=== PATIENT | male | born 1950 | race Caucasian/White ===

== ENCOUNTER 2018-04-14 07:37 | Inpatient (IN) | payer MEDICARE, SELFPAY ==
[2018-04-14] VITALS (17 sets, daily range): BP systolic 105–148; BP diastolic 59–93; PULSE 110–151; RESP 15–22; TEMP 36.5–37.2; O2SAT 93–100; BMI 30.7
--- NOTE | 2018-04-14 | DI.US.S_ITS ---
PROCEDURE: US ARTERIAL DUPLEX LE LT INDICATIONS: non-healing left lower leg ulcer TECHNIQUE: Color and pulse Doppler interrogation was performed of the left lower extremity arterial system, with image documentation. COMPARISON: None. FINDINGS: Common femoral artery: 155 cm/sec, with monophasic flow. Deep femoral artery: 105 cm/sec, with biphasic flow. Proximal superficial femoral artery: 135 cm/sec, with monophasic flow. Mid superficial femoral artery: 128 cm/sec, with monophasic flow. Distal superficial femoral artery: 170 cm/sec, with monophasic flow. Popliteal artery: 65 cm/sec, with monophasic flow. Posterior tibial artery: 57 cm/sec, with monophasic flow. Anterior tibial artery/dorsalis pedis: 59 cm/sec, with monophasic flow. Felder-scale imaging description: Diffuse atheromatous plaque and calcification is present the left lower extremities. IMPRESSION: 1. Monophasic waveforms within the left common femoral artery suggesting inflow stenosis likely within the iliac artery. If further characterization is warranted, CT aortogram or MR aortogram and bilateral lower extremity runoff is recommended to further characterize findings. Additionally, this would be helpful to evaluate for possible therapeutic intervention. If renal insufficiency limits administration of iodinated contrast, consider CO2 arteriography. Dictated by: Sunitha Pappas M.D. on 04/14/2018 at 15:05 Approved by: Sunitha Pappas M.D. on 04/14/2018 at 15:10
--- NOTE | 2018-04-14 | DI.ECHO.S_ITS ---
[facility]---------+ [facility] +---------+ : : [address] : : : : [id number] : : : : Phone: [phone] Echocardiogram Report + + :Name: GERMAN VALDEZ Study Date: 04/15/2018 Height: 71 in : :[facility] Weight: 200 lb : : Gender: Male BSA: 2.1 m2 : :: 1950 Age: 68 yrs BP: 122/93 mmHg: :Reason For Study: Atrial fibrillation : : Performed By: Lakia Duggan : :Referring: RUSTY RUSH : + + Interpretation Summary The left ventricle is normal in size. There is normal left ventricular wall thickness. The ejection fraction is estimated to be 55-60%. The left atrium is mildly dilated. The aortic valve is not well visualized. There is mild to moderate aortic stenosis. The peak aortic velocity is 2.3 m/sec. There is mild aortic regurgitation. There is mild pulmonary hypertension. The right ventricular systolic pressure is estimated at 39 mmHg assuming a right atrial pressure of 15 mm Hg. The IVC is dilated (diameter is greater than 2.1 cm) and it collapses less than 50% with a sniff. This suggests a high right atrial pressure of 15 mm Hg. No other echocardiographic abnormalities seen. Compared to the prior exam dated February 06, 2015 the left ventricular systolic function appears significantly improved. The degree of aortic stenosis is worsened. There appears to be less significant mitral regurgitation. No other significant changes noted. Procedure: A two-dimensional transthoracic echocardiogram with color flow and Doppler was performed. The study quality was technically adequate. Comparison is made with the echocardiogram of 02-06-15. The patient was in atrial fibrillation with heart rates between 81-94 bpm during the exam. Left Ventricle: The left ventricle is normal in size. There is normal left ventricular wall thickness. The ejection fraction is estimated to be 55-60%. There are no obvious focal wall motion abnormalities noted but poor endocardial definition reduces the sensitivity for the detection of such. Diastolic function could not be accurately assessed due to atrial fibrillation. Right Ventricle: The right ventricle is normal in size and function. Right ventricular systolic function is borderline reduced. Atria: The left atrium is mildly dilated. The right atrium grossly appears normal in size. The interatrial septum is intact with no evidence for an atrial septal defect. Mitral Valve: The mitral valve is grossly normal. There is trace mitral regurgitation. Aortic Valve: The aortic valve is not well visualized. The calculated aortic valve area is 0.9 cm2. The peak aortic velocity is 2.3 m/sec. The peak aortic velocity on the previous exam was 1.3 m/sec. The aortic valve mean gradient is 9 mmHg. Severity ratio is 0.27. There is mild to moderate aortic stenosis. There is mild aortic regurgitation. Tricuspid Valve: The tricuspid valve leaflets are thin and pliable. There is mild tricuspid regurgitation. The right ventricular systolic pressure is estimated at 39 mmHg assuming a right atrial pressure of 15 mm Hg. There is mild pulmonary hypertension. Pulmonic Valve: The pulmonic valve is not well visualized. Great Vessels: The aortic root is normal size. The ascending aorta could not be visualized. The IVC is dilated (diameter is greater than 2.1 cm) and it collapses less than 50% with a sniff. This suggests a high right atrial pressure of 15 mm Hg. Pericardium/ Pleura There is no pericardial effusion. There is no pleural effusion. MMode/2D Measurements & Calculations LVIDd: 4.4 cm LVOT diam: 2.0 cm LVIDs: 2.9 cm Ao root diam: 3.1 cm FS: 33.5 % Aortic Jxn: 2.5 cm IVSd: 0.96 cm Ao Arch Diam (Prox Trans): 2.2 cm LVPWd: 0.93 cm LV chris. diameter/BSA (cm/m^2): 2.1 LV sys. diameter/BSA (cm/m^2): 1.4 LA dimension: 5.0 cm RA long axis: 5.3 cm LA A2 area: 22.6 cm2 RA area: 19.2 cm2 LA A4 area: 22.0 cm2 RA vol: 58.9 ml LA length (vol): 6.0 cm RA : 27.9 ml/m2 LA vol: 70.5 ml IVC diam: 2.5 cm LA vol index: 33.4 ml/m2 RVDd major: 6.4 cm RVD1 (basal): 3.1 cm RVD2 (mid): 2.8 cm Doppler Measurements & Calculations Ao V2 max: 231.5 cm/sec LVOT Max Chandler: 64.4 cm/sec Ao V2 mean: 130.6 cm/sec LV V1 max P.7 mmHg Ao max P.4 mmHg LV V1 VTI: 11.5 cm Ao mean P.2 mmHg FARZANA(I,D): 0.88 cm2 Ao V2 VTI: 42.7 cm FARZANA(V,D): 0.91 cm2 sev ratio: 0.27 FARZANA indexed to BSA (cm^2/m^2): 0.42 MV P1/2t: 68.2 msec TR max chandler: 242.8 cm/sec MVA(VTI): 2.3 cm2 TR max P.6 mmHg MV V2 mean: 63.8 cm/sec MV P1/2t max chandler: 118.4 cm/sec MV mean P.2 mmHg MVA(P1/2t): 3.2 cm2 MV V2 VTI: 16.6 cm Reading Physician:03:46 PM
--- NOTE | 2018-04-14 | DI.US.S_ITS ---
PROCEDURE: US ABDOMEN COMPLETE INDICATIONS: eval for ascites, cirrhosis TECHNIQUE: Real-time scanning was performed of the abdominal and retroperitoneal organs, with image documentation. COMPARISON: [facility], US, ABDOMEN COMPLETE, 02/14/2014, 8:49. FINDINGS: Liver: Liver is normal in size and homogeneous in echotexture. Gallbladder: Gallbladder has been surgically removed since last exam. Biliary ducts: Intrahepatic bile ducts are non-dilated. Extrahepatic bile duct is obscured by bowel gas Pancreas: Pancreas is obscured by bowel gas Spleen: Spleen is normal in size and homogeneous in echotexture. Kidneys: Kidneys are normal in size and echotexture. Right kidney measures 10.3 cm long; left kidney measures 11.2 cm long. No hydronephrosis or nephrolithiasis. No solid masses. Aorta: Visualized aorta is normal in caliber at less than 3 cm. the distal segment is obscured by bowel gas. Iliacs: Iliac vessels are obscured by bowel gas IVC: Intrahepatic inferior vena cava is patent. Miscellaneous: No free abdominal fluid. IMPRESSION: 1. Liver appears normal in size and echotexture. No ascites. 2. Considerable bowel gas, obscuring the pancreas, extrahepatic bile ducts, distal aorta and iliac vessels. 3. Status post cholecystectomy. Dictated by: Eddie Cornejo M.D. on 04/14/2018 at 15:46 Approved by: Eddie Cornejo M.D. on 04/14/2018 at 15:49
--- NOTE | 2018-04-14 07:41 | DI.RAD.S_ITS ---
PROCEDURE: XR CHEST 1V INDICATIONS: shortness of breath TECHNIQUE: One view of the chest was acquired. COMPARISON: [facility], , CHEST 1 VIEW, 02/13/2014, 9:30. FINDINGS: Surgical changes and devices: None. Lungs and pleura: Chronic interstitial changes are present. There mild bilateral effusions, right greater than left, slightly progressive compared to prior exam. Slight increased hazy opacities present within the right hemithorax. Increased pulmonary vascularity is noted. Mediastinum: Mediastinal contours appear normal. Heart size is normal. Bones and chest wall: No suspicious bony lesions. Overlying soft tissues appear unremarkable. IMPRESSION: Chronic interstitial changes as well as appearance of increased pulmonary vascularity suggestive of edema. Mild bilateral effusions, slightly progressive compared to prior exam. Dictated by: Kerrie Arshad M.D. on 04/14/2018 at 9:16 Approved by: Kerrie Arshad M.D. on 04/14/2018 at 9:16
--- NOTE | 2018-04-14 07:42 | ED_ITS ---
HPI - SOB/Dyspnea General Chief Complaint: Shortness of Breath/Dyspnea Stated Complaint: SOB Time Seen by Provider: 04/14/18 07:40 Source: patient and EMS Mode of arrival: EMS Limitations: no limitations History of Present Illness 68-year-old male here for evaluation of shortness of breath and swelling in his lower legs and ?water back up ?patient states over the past 2 weeks he has gained approximately 60 lb. He states that he occasionally has times when his weight increases. He states that he has had shortness of breath which has been worsening over the past 2 weeks. States that he feels like his clothes do not fit any more. He states shortness of breath worsened yesterday. Denies chest pain. Is not on any medications. Has seen a plant pathologist in the past and was told ?it is not my heart ?he does not have a primary care doctor. He has not take any medicines. Has no history of atrial fibrillation. No trauma. States that he ate some ?tartar sauce with lemon juice ?and a ?Slim Damian ?and states after that he has been gaining weight. Related Data Allergies Allergy/AdvReac Type Severity Reaction Status Date / Time NOVACAINE Allergy Intermediate Uncoded 04/14/18 08:19 Review of Systems Constitutional Denies fatigue and Denies fever(s) Comments: Weight gain Eyes Denies blurry vision and Denies diplopia ENT Ears, Nose, Mouth, and Throat: Denies vertigo, Denies dizziness and Denies neck pain Cardiovascular Denies chest pain, Denies diaphoresis, Denies syncope, Denies rapid heart rate, Reports edema, Denies irregular heart rhythm, Reports leg ulcers, Reports leg edema, Denies lightheadedness, Denies palpitations, Reports dyspnea and Reports dyspnea on exertion Respiratory Reports dyspnea, Reports dyspnea on exertion, Denies stridor and Denies wheezing Gastrointestinal Gastrointestinal: Denies abdominal pain, Denies constipation, Denies diarrhea, Denies nausea and Denies vomiting Genitourinary Denies hematuria and Denies dysuria Musculoskeletal Reports myalgias, Reports arthralgias, Denies joint swelling and Denies neck pain Comments: Bilateral lower extremity swelling Integumentary/Breasts Comments: Swelling bilateral lower extremities with a ?infection? on his left lower leg Neurologic Denies vertigo, Denies dizziness and Denies syncope Endocrine Denies fatigue and Denies palpitations Hematologic/Lymphatic Denies easy bleeding and Denies easy bruising Allergic/Immunologic Denies wheezing PFSH Social History Smoking Status: Current every day smoker Exam Initial Vital Signs Initial Vital Signs: Vital Signs Temperature 98.2 F 04/14/18 07:46 Pulse Rate 111 H 04/14/18 07:46 Respiratory Rate 15 04/14/18 07:46 Blood Pressure 123/71 H 04/14/18 07:46 Pulse Oximetry 96 04/14/18 07:46 Const General: cooperative, comfortable, well developed, well groomed, No acute distress and ill appearing Orientation: alert, awake and oriented x3 HENMT Head: normal to inspection, normocephalic and atraumatic Chest Chest: normal inspection of the chest and normal palpation of entire chest wall Resp Other: Left side with crackles Right-sided diminished lung sounds with crackles no wheezing Cardio Rate: tachycardic Rhythm: abnormal rhythm irregularly irregular Pulses: radial pulses present GI Inspection: non-distended Palpation: soft, No firm, No guarding and No tender Skin Other: Patient with bilateral lower extremity chronic venous stasis changes with lichenification Patient with a 10 cm area of ulceration on his left mid tibia anteriorly with purulent material drainage. Neuro General: alert, awake and oriented x3 Extrem Other: Bilateral lower extremity edema with skin changes as noted in the skin section Course Orders Ordered: ED Orders 04/14/18 07:40 B Type Natriuretic Peptide Stat Complete Blood Count AUTO DIFF Stat Comprehensive Metabolic Panel Stat Lipase Stat Partial Thromboplastin Time Stat Prothrombin Time INR Stat Troponin I Stat 04/14/18 07:41 XR chest 1V Stat EKG-12 Lead Stat 04/14/18 08:05 Blood Culture Stat Lactate (Lactic Acid) Stat Discontinued Medications Furosemide (Lasix) 60 mg IV NOW ONE Stop: 04/14/18 07:59 Last Admin: 04/14/18 08:07 Dose: 60 mg Lidocaine HCl (Xylocaine 1%) 20 ml SUBCUT NOW ONE Stop: 04/14/18 08:27 Last Admin: 04/14/18 08:32 Dose: 20 ml Morphine Sulfate (Morphine) 4 mg IV NOW ONE Stop: 04/14/18 08:27 Last Admin: 04/14/18 08:31 Dose: 4 mg Vital Signs - 8 hr 04/14/18 07:46 04/14/18 08:30 04/14/18 09:05 Temperature 98.2 F Pulse Rate 111 H 120 H 116 H Respiratory Rate 15 15 16 Blood Pressure 123/71 H Blood Pressure [Right Arm] 115/74 127/78 H Pulse Oximetry 96 100 100 MDM - SOB/Dyspnea Lab Data Attestation: I reviewed the patient's lab results. Result diagrams: 04/14/18 07:40 04/14/18 07:40 Lab Results 04/14/18 04/14/18 04/14/18 Range/Units 07:40 07:40 07:40 WBC 9.0 (4.5-11.0) X10^3/uL RBC 3.45 L (4.5-5.9) X10^6/uL Hgb 8.5 L (13.5-17.5) g/dL Hct 26.5 L (41-53) % MCV 76.8 L (80-100) fL MCH 24.6 L (26-34) PG MCHC 32.1 (30-36) % RDW 24.1 H (11.6-14.8) % Plt Count 343 (150-400) X10^3/uL Neut % (Auto) 65.5 (50-75) % Lymph % (Auto) 12.6 L (25-40) % Mcintosh % (Auto) 15.7 H (3-14) % Eos % (Auto) 5.0 H (2-4) % Baso % (Auto) 1.2 (0-2) % Neut # (Auto) 5900 (1518-4764) /uL RBC Morphology Not Reportable Polychromasia 1+ H Anisocytosis 3+ H Ovalocytes 1+ H PT 14.6 H (10.1-12.7) SECONDS INR 1.3 (0.9-1.3) APTT 27 (26.4-36.2) SECONDS Sodium 144 (137-145) mmol/L Potassium 3.0 L (3.4-5.1) mmol/L Chloride 96 L (98-107) mmol/L Carbon Dioxide 36 H (22-32) mmol/L BUN 21 H (9-20) mg/dL Creatinine 1.20 (0.66-1.25) mg/dL Estimated GFR > 60.0 (>60) mL/min BUN/Creatinine Ratio 17.5 (6-22) Glucose 106 (80-110) mg/dL Lactate (0.7-2.1) mmol/L Calcium 8.9 (8.4-10.2) mg/dL Total Bilirubin 0.7 (0.2-1.3) mg/dL AST 25 (17-59) IU/L ALT 15 L (21-72) IU/L Alkaline Phosphatase 144 H (38-126) U/L Troponin I < 0.012 (0.01-0.034) ng/mL B-Natriuretic Peptide 125.0 H (<100) Total Protein 7.5 (6.3-8.2) g/dL Albumin 3.8 (3.5-5.0) g/dL Globulin 3.7 (1.7-4.1) g/dL Albumin/Globulin Ratio 1.0 (1.0-2.8) Lipase 79 (23-300) U/L // Range/Units 08:05 WBC (4.5-11.0) X10^3/uL RBC (4.5-5.9) X10^6/uL Hgb (13.5-17.5) g/dL Hct (41-53) % MCV (80-100) fL MCH (26-34) PG MCHC (30-36) % RDW (11.6-14.8) % Plt Count (150-400) X10^3/uL Neut % (Auto) (50-75) % Lymph % (Auto) (25-40) % Mcintosh % (Auto) (3-14) % Eos % (Auto) (2-4) % Baso % (Auto) (0-2) % Neut # (Auto) (1898-7288) /uL RBC Morphology Polychromasia Anisocytosis Ovalocytes PT (10.1-12.7) SECONDS INR (0.9-1.3) APTT (26.4-36.2) SECONDS Sodium (137-145) mmol/L Potassium (3.4-5.1) mmol/L Chloride (98-107) mmol/L Carbon Dioxide (22-32) mmol/L BUN (9-20) mg/dL Creatinine (0.66-1.25) mg/dL Estimated GFR (>60) mL/min BUN/Creatinine Ratio (6-22) Glucose (80-110) mg/dL Lactate 1.4 (0.7-2.1) mmol/L Calcium (8.4-10.2) mg/dL Total Bilirubin (0.2-1.3) mg/dL AST (17-59) IU/L ALT (21-72) IU/L Alkaline Phosphatase (38-126) U/L Troponin I (0.01-0.034) ng/mL B-Natriuretic Peptide (<100) Total Protein (6.3-8.2) g/dL Albumin (3.5-5.0) g/dL Globulin (1.7-4.1) g/dL Albumin/Globulin Ratio (1.0-2.8) Lipase (23-300) U/L Imaging Data Chest x-ray: Attestation: I personally reviewed and interpreted this imaging study as follows: My impression: Right-sided pleural effusion with volume loss No focal consolidation Radiologist's impression: ECG Data Attestation: I personally reviewed and interpreted this ECG as follows: Prior ECG tracings: not available for review Interpretation: Atrial fibrillation Ventricular rate of 104 Left axis deviation Normal QRS Normal QTC No ST T wave changes MDM Narrative Medical decision making narrative: 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 According to his history it seems that he has had off and on edema issues with weight gain for some time now. Has not seen a medical provider and over a year and his last medical appointment was with a plant pathologist. He informed me that he does not take any medications except for Tylenol. He states that he has no history of atrial fibrillation. Does report a weight gain over the past couple weeks. Has chronic venous stasis changes in his bilateral lower extremities. The ulceration in his left lower extremity also appears to be chronic. He has been using hydrogen peroxide at home on top of this. Does not have an elevated white count. Lactate unremarkable. Patient's physical exam and history is not consistent with pneumonia. He states that he has had his heart evaluated in the past and has been told that the edema is ?not from my heart ?has a relatively low BNP this morning. After discussing the chest x-ray with the radiologist who feels that the findings in the right lung are effusion which patient has had in the past. Discussed the case with Discharge Plan Departure Patient Disposition: Admitted As Inpatient Clinical Impression: Pneumothorax on right, Dependent edema, Breath shortness, A-fib, Leg ulcer, left
[2018-04-14 07:53] LABS: Basophils Percent Auto 1.2 % (0-2); Hematocrit 26.5 % (41-53); Hemoglobin 8.5 g/dL (13.5-17.5); Lymphocytes Percent Auto 12.6 % (25-40); Mean Corpuscular HGB Conc 32.1 % (30-36); Mean Corpuscular Hemoglobin 24.6 PG (26-34); Mean Corpuscular Volume 76.8 fL (80-100); Monocytes Percent Auto 15.7 % (3-14); Neutrophils Absolute Auto 5900 /uL (3000-5900); Neutrophils Percent Auto 65.5 % (50-75); Platelet Count 343 X10^3/uL (150-400); Red Blood Cell Count 3.45 X10^6/uL (4.5-5.9); Red Cell Distribution Width 24.1 % (11.6-14.8)
[2018-04-14 07:55] LABS: INR 1.3 (0.9-1.3); Prothrombin Time 14.6 SECONDS (10.1-12.7)
[2018-04-14 07:58] LABS: PTT Partial Thromboplastin Tim 27 SECONDS (26.4-36.2)
[2018-04-14 07:59] LABS: Add Manual Diff / Slide Review SLIDE REVIEW
[2018-04-14 08:00] LABS: Alanine Aminotransferase 15 IU/L (21-72); Albumin 3.8 g/dL (3.5-5.0); Alkaline Phosphatase 144 U/L (38-126); Aspartate Aminotransferase 25 IU/L (17-59); BUN Creatinine Ratio 17.5 (6-22); Bilirubin Total 0.7 mg/dL (0.2-1.3); Blood Urea Nitrogen 21 mg/dL (9-20); Calcium 8.9 mg/dL (8.4-10.2); Carbon Dioxide 36 mmol/L (22-32); Chloride 96 mmol/L (98-107); Estimated Glomerular Filt Rate > 60.0 mL/min (>60); Globulin 3.7 g/dL (1.7-4.1); Glucose 106 mg/dL (80-110); HEMOLYSIS 25 (0-50); Lipase 79 U/L (23-300); Sodium 144 mmol/L (137-145); Total Protein 7.5 g/dL (6.3-8.2)
[2018-04-14] MEDS: FUROSEMIDE 100 MG/10 ML VIAL 60 MG IV (08:07)
[2018-04-14 08:12] LABS: Troponin I < 0.012 ng/mL (0.01-0.034)
[2018-04-14 08:30] LABS: Anisocytosis 3+; Ovalocytes 1+; Polychromasia 1+
[2018-04-14] MEDS: MORPHINE 4 MG/ML INJ IV ×2 (08:31→09:51)
[2018-04-14] MEDS: LIDOCAINE 1% 20 ML INJ SUBCUT (08:32)
[2018-04-14 08:33] LABS: Lactate (Lactic Acid) 1.4 mmol/L (0.7-2.1)
--- NOTE | 2018-04-14 08:40 | PC.NURSE ---
Placed on oxygen per MD. To have chest tube insertion for pneumothorax
--- NOTE | 2018-04-14 09:37 | PC.NURSE ---
States shooting spasm type pain that comes and goes to l leg.
--- NOTE | 2018-04-14 12:30 | P.HP_ITS ---
History of Present Illness Date Patient Seen: 04/14/18 Time Patient Seen: 11:30 Chief complaint: SOB Narrative: Patient is a 68-year-old male who came into the emergency department due to progressive dyspnea and swelling in his legs over the past month. Patient states he has had edema in the legs for years. He sees Dr. Javier ELLISON if he for Cardiology and states Dr. De Los Santos told him the swelling is not due to his heart. Patient states his doctors have not been able to figure out the source of his edema. He states he last saw Dr. De Los Santos if the in April 2017 and gets all his medications refilled through Cardiology. He states he stopped seeing a PCP as he has become somewhat dissolution with doctors in general who have not been able to help him. Review of outside records found on radiology PAX indicates he was admitted to [facility] back in 2014 and had echo done which showed LVEF 40 +/-5%, normal LV size, decreased RV function, mild to moderate MR and noted he was in atrial fibrillation with RVR. Also his chest x-ray at that time showed bilateral pleural effusions. Patient believes his last echo was a couple of years ago through his process automation engineer but again he was told the edema was not related to his heart. At any rate, he states he has been compliant with his furosemide which is 80 mg twice daily. He is also supposed to be taking Cartia XT 120 mg daily but admits to not having taken it for the past month. He does note his heart rate is often elevated on his home pulse oximeter. On ER evaluation here patient was noted to be in atrial fibrillation with RVR, bilateral pleural effusions, anemic, and with severe pitting edema in legs. 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 He has been putting hydrogen peroxide, teetree oral and all avoid oil on it. To confound matters, patient states to alleviate the pain from ulcer on his leg he took 4 tablets of extra-strength (4000 mg closed acetaminophen every 4 hr for the past 24 hr until about 9:00 p.m. last night. He then switch to aspirin 325 mg taking 4 tablets every 4 hr until he came into ER this morning at about 8 :00 a.m.. He also reports history of significant alcohol use 6 beers or more a day in the past but apparently in more recent years he binge drinks on the weekends (for example multiple whiskey shots). Patient History Medical History Non-pressure ulcer of left lower extremity with fat layer exposed (Acute) Chronic venous hypertension (idiopathic) with inflammation of bilateral lower extremity (Acute) Family & Social History Family History: Reviewed 04/14/18 by Rupert Vernon MD Safety & Behavioral: Feels Safe in Current Yes Environment Tobacco & Substance use: Smoking Status Current every day smoker alcohol intake frequency 3 or more drinks per day Substance Use Type does not use Meds Home Medications Medication Instructions Recorded Confirmed Type acetaminophen [Tylenol Extra 500 mg PO PRN PRN 04/14/18 04/14/18 History Strength] aspirin 1 tab PO PRN PRN 04/14/18 04/14/18 History diltiazem HCl [Cartia XT] 120 mg PO DAILY 04/14/18 04/14/18 History furosemide 80 mg PO BID 04/14/18 04/14/18 History potassium chloride 10 meq PO BID 04/14/18 04/14/18 History Allergies Allergy/AdvReac Type Severity Reaction Status Date / Time NOVACAINE Allergy Intermediate Uncoded 04/14/18 08:19 Review of Systems Review of Systems All systems reviewed & are unremarkable except as noted in HPI and below Exam Vital Signs (past 8 hours): - 04/14/18 07:46 04/14/18 08:30 04/14/18 09:05 Temperature 98.2 F Pulse Rate 111 H 120 H 116 H Respiratory Rate 15 15 16 Blood Pressure 123/71 H Blood Pressure [Right Arm] 115/74 127/78 H Pulse Oximetry 96 100 100 04/14/18 09:47 04/14/18 09:50 04/14/18 10:35 Temperature Pulse Rate 117 H 119 H 117 H Respiratory Rate 18 19 17 Blood Pressure Blood Pressure [Right Arm] 122/83 H 121/74 H 118/89 H Pulse Oximetry 100 98 100 04/14/18 10:52 Temperature Pulse Rate 110 H Respiratory Rate 20 Blood Pressure 114/80 Blood Pressure [Right Arm] Pulse Oximetry 100 Oxygen Delivery Method Nasal Cannula Oxygen Flow Rate 2 Narrative Exam Narrative: GENERAL: This is an alert cooperative male HEAD: Atraumatic. Normocephalic. EYES: Pupils equal, round and reactive. Extraocular motions intact. No scleral icterus. OROPHARYNX: moist mucosa NECK: Trachea midline. No JVD or lymphadenopathy. CARDIOVASCULAR: Tachycardic with irregularly irregular rhythm RESPIRATORY: Diminished breath sounds right lower lobe and bilateral upper lobe wheeze GASTROINTESTINAL: Abdomen obese, soft, nontender. No abdominal mass. No palpable spleen. EXTREMITIES: Chronic venous stasis changes with bilateral 3+ pitting pretibial edema. There is a large non pressure unstageable ulcer on the left pratt covered with yellow exudate NEUROLOGICAL: Alert, well oriented and not confused, speech is intact, normal bilateral upper and lower extremity strength Objective Labs Result Diagrams: 04/14/18 07:40 04/14/18 07:40 Labs: EKG: Atrial fibrillation with RVR, left anterior fascicular block. No old EKG for comparison. PROCEDURE: XR CHEST 1V INDICATIONS: shortness of breath TECHNIQUE: One view of the chest was acquired. COMPARISON: [facility], CHEST 1 VIEW, 02/13/2014, 9:30. FINDINGS: Surgical changes and devices: None. Lungs and pleura: Chronic interstitial changes are present. There mild bilateral effusions, right greater than left, slightly progressive compared to prior exam. Slight increased hazy opacities present within the right hemithorax. Increased pulmonary vascularity is noted. Mediastinum: Mediastinal contours appear normal. Heart size is normal. Bones and chest wall: No suspicious bony lesions. Overlying soft tissues appear unremarkable. IMPRESSION: Chronic interstitial changes as well as appearance of increased pulmonary vascularity suggestive of edema. Mild bilateral effusions, slightly progressive compared to prior exam. Dictated by: Kerrie Arshad M.D. on 04/14/2018 at 9:16 Approved by: Kerrie Arshad M.D. on 04/14/2018 at 9:16 Laboratory Results - last 24 hr 04/14/18 04/14/18 04/14/18 07:40 07:40 07:40 WBC 9.0 RBC 3.45 L Hgb 8.5 L Hct 26.5 L MCV 76.8 L MCH 24.6 L MCHC 32.1 RDW 24.1 H Plt Count 343 Neut % (Auto) 65.5 Lymph % (Auto) 12.[address] [place] % (Auto) 15.7 H Eos % (Auto) 5.0 H Baso % (Auto) 1.2 Neut # (Auto) 5900 RBC Morphology Not Reportable Polychromasia 1+ H Anisocytosis 3+ H Ovalocytes 1+ H PT 14.6 H INR 1.3 APTT 27 Sodium 144 Potassium 3.0 L Chloride 96 L Carbon Dioxide 36 H BUN 21 H Creatinine 1.20 Estimated GFR > 60.0 BUN/Creatinine Ratio 17.5 Glucose 106 Lactate Calcium 8.9 Total Bilirubin 0.7 AST 25 ALT 15 L Alkaline Phosphatase 144 H Troponin I < 0.012 B-Natriuretic Peptide 125.0 H Total Protein 7.5 Albumin 3.8 Globulin 3.7 Albumin/Globulin Ratio 1.0 Lipase 79 04/14/18 08:05 WBC RBC Hgb Hct MCV MCH MCHC RDW Plt Count Neut % (Auto) Lymph % (Auto) [place] % (Auto) Eos % (Auto) Baso % (Auto) Neut # (Auto) RBC Morphology Polychromasia Anisocytosis Ovalocytes PT INR APTT Sodium Potassium Chloride Carbon Dioxide BUN Creatinine Estimated GFR BUN/Creatinine Ratio Glucose Lactate 1.4 Calcium Total Bilirubin AST ALT Alkaline Phosphatase Troponin I B-Natriuretic Peptide Total Protein Albumin Globulin Albumin/Globulin Ratio Lipase Assessment & Plan Plan: Assessment/Plan Narrative: 1. Progressive edema and shortness of breath. Etiology unclear. His BNP is only a 125 arguing against congestive heart failure. His serum albumin is normal. He does have significant alcohol use history which may indicate decompensated cirrhosis although he has normal liver enzymes, bilirubin and alkaline phosphatase is only slightly above normal range. Plan: Diuresis with IV Lasix 40 mg twice daily with extra oral potassium. Obtain abdominal ultrasound to assess for cirrhosis and presence of ascites. Obtain transthoracic echo. Obtain past records from his process automation engineer Dr. De Los Santos. 2. Chronic atrial fibrillation with RVR. Patient has been off of his Cardizem for the past month likely explaining rapid rate. Plan: Restart Cardizem extended release 120 mg daily. Telemetry monitoring. Echo. Check TSH. 3. Presumed acetaminophen acute toxicity. Patient with reported 14006 mg acetaminophen intake over a period of 24 hr. His last dose was approximately 11 hr prior to the ER and therefore his undetectable acetaminophen level would not be reliable. Plan: Started patient on acetylcysteine 20 hr IV infusion protocol. Recheck liver function testing and INR tomorrow a.m. and continue IV infusion beyond 20 hr if there is any indication of acute liver failure. 4. Acute aspirin overdose. Patient with ingestion of approximately 4000 mg of aspirin over previous 12 hr. He is not having gross melena or leni red blood. Plan: Started Protonix 40 mg IV daily for GI protection. 5. Microcytic anemia, presumed chronic. This is suggestive of iron deficiency with chronic blood loss related to alcohol gastritis and aspirin use. Plan: Obtain iron profile, ferritin. Protonix started as above. Repeat CBC in a.m.. 6. Cigarette and alcohol dependence. Patient advised to stop drinking and smoking. Nicotine patch as needed. Monitor for alcohol withdrawal. 7. DVT prophylaxis. Lovenox contraindicated due to likely chronic bleed. 8. Hypokalemia. Serum potassium 3.0 on admission. Patient is provided oral potassium replacement. Follow up labs in a.m.. 9. Non pressure ulcer left lower extremity with localized super infection. Appreciate wound care consult by Dr. Chaudhari. We have obtained wound culture with plans to start oral antibiotic once culture results are back. Dr. chaudhari also ordered lower extremity arterial duplex to evaluate for peripheral artery disease. Patient will need outpatient wound care follow-up.
[2018-04-14 12:53] LABS: Acetaminophen < 10 ug/mL (10-30)
--- NOTE | 2018-04-14 13:10 | P.CONS_ITS ---
History of Present Illness Date Patient Seen: 04/14/18 Time Patient Seen: 12:55 Chief complaint: SOB Reason for consult: left lower leg ulcer Requesting provider: Rupert Vernon Narrative: The patient's been admitted for shortness of breath and subsequently has been found to have an anterior left lower leg chronic, non-pressure ulcer. He states it's been present for about one year, started when his legs became very swollen, and he's been applying hydrogen peroxide intermittently to clean the wound. He reports pain and drainage however has not seen by a medical provider for this problem as of yet. [facility] Medical History Non-pressure ulcer of left lower extremity with fat layer exposed (Acute) Chronic venous hypertension (idiopathic) with inflammation of bilateral lower extremity (Acute) Social History other: lives in [place], his son is present today Smoking Status: Current every day smoker Meds Home Medications Medication Instructions Recorded Confirmed Type acetaminophen [Tylenol Extra 500 mg PO PRN PRN 04/14/18 04/14/18 History Strength] aspirin 1 tab PO PRN PRN 04/14/18 04/14/18 History diltiazem HCl [Cartia XT] 120 mg PO DAILY 04/14/18 04/14/18 History furosemide 80 mg PO BID 04/14/18 04/14/18 History potassium chloride 10 meq PO BID 04/14/18 04/14/18 History Allergies Allergy/AdvReac Type Severity Reaction Status Date / Time NOVACAINE Allergy Intermediate Uncoded 04/14/18 08:19 Review of Systems Cardiovascular Cardiovascular: Reports leg swelling and Reports shortness of breath Respiratory Respiratory: Reports dyspnea Integumentary/Breasts Skin/Breast: Reports skin ulcer Exam Vital Signs (past 8 hours): - 04/14/18 07:46 04/14/18 08:30 04/14/18 09:05 Temperature 98.2 F Pulse Rate 111 H 120 H 116 H Respiratory Rate 15 15 16 Blood Pressure 123/71 H Blood Pressure [Right Arm] 115/74 127/78 H Pulse Oximetry 96 100 100 04/14/18 09:47 04/14/18 09:50 04/14/18 10:35 Temperature Pulse Rate 117 H 119 H 117 H Respiratory Rate 18 19 17 Blood Pressure Blood Pressure [Right Arm] 122/83 H 121/74 H 118/89 H Pulse Oximetry 100 98 100 04/14/18 10:52 Temperature Pulse Rate 110 H Respiratory Rate 20 Blood Pressure 114/80 Blood Pressure [Right Arm] Pulse Oximetry 100 Oxygen Delivery Method Nasal Cannula Oxygen Flow Rate 2 Const General: cooperative and comfortable Orientation: alert, awake and oriented x3 Cardio Pulses: dorsalis pedis present on the left diminished Skin Wounds: wounds noted (approx 5x6cm anterior left lower leg ulcer covered with wet, yellow slough; minimal periulcer erythema and adherent yellow drainage) Extrem Left lower extremity: edema Details: pitting and 2+ Objective Labs Result Diagrams: 04/14/18 07:40 04/14/18 07:40 Labs: Laboratory Results - last 24 hr 04/14/18 04/14/18 04/14/18 07:40 07:40 07:40 WBC 9.0 RBC 3.45 L Hgb 8.5 L Hct 26.5 L MCV 76.8 L MCH 24.6 L MCHC 32.1 RDW 24.1 H Plt Count 343 Neut % (Auto) 65.5 Lymph % (Auto) 12.[address] [place] % (Auto) 15.7 H Eos % (Auto) 5.0 H Baso % (Auto) 1.2 Neut # (Auto) 5900 RBC Morphology Not Reportable Polychromasia 1+ H Anisocytosis 3+ H Ovalocytes 1+ H PT 14.6 H INR 1.3 APTT 27 Sodium 144 Potassium 3.0 L Chloride 96 L Carbon Dioxide 36 H BUN 21 H Creatinine 1.20 Estimated GFR > 60.0 BUN/Creatinine Ratio 17.5 Glucose 106 Lactate Calcium 8.9 Total Bilirubin 0.7 AST 25 ALT 15 L Alkaline Phosphatase 144 H Troponin I < 0.012 B-Natriuretic Peptide 125.0 H Total Protein 7.5 Albumin 3.8 Globulin 3.7 Albumin/Globulin Ratio 1.0 Lipase 79 Acetaminophen 04/14/18 04/14/18 08:05 Unknown WBC RBC Hgb Hct MCV MCH MCHC RDW Plt Count Neut % (Auto) Lymph % (Auto) [place] % (Auto) Eos % (Auto) Baso % (Auto) Neut # (Auto) RBC Morphology Polychromasia Anisocytosis Ovalocytes PT INR APTT Sodium Potassium Chloride Carbon Dioxide BUN Creatinine Estimated GFR BUN/Creatinine Ratio Glucose Lactate 1.4 Calcium Total Bilirubin AST ALT Alkaline Phosphatase Troponin I B-Natriuretic Peptide Total Protein Albumin Globulin Albumin/Globulin Ratio Lipase Acetaminophen < 10 L Assessment & Plan (1) Local infection of skin and subcutaneous tissue: Problem details: According to the nurse a wound culture has been taken and I'd recommend starting an oral antibiotic once culture results are available to treat what's likely a chronic wound infection. Current visit: Yes Status: Acute (2) Non-pressure ulcer of left lower extremity with fat layer exposed: Problem details: The ulcer will require outpatient debridement, antibiotics, and eventually compression therapy. Current visit: Yes Status: Acute (3) Chronic venous hypertension (idiopathic) with inflammation of bilateral lower extremity: Problem details: I've ordered an arterial Doppler to evaluate for clinically significant PAD based on my exam today which if present would contraindicate placing a compression wrap. I'd recommend simply keeping the leg at horizontal or a bit above at all times to address the left leg chronic venous hypertension while he' s in the hospital. Current visit: Yes Status: Acute Plan: Assessment/Plan Narrative: I'd like to thank Dr. Vernon for the consult request and will be available as needed while the patient's in the hospital. I'd also be happy to see him within 2-3 days of discharge in the wound care clinic.
[2018-04-14] MEDS: ACETYLCYSTEINE IV ×3 (13:18→17:43)
[2018-04-14] MEDS: DEXTROSE 5% IV ×3 (13:18→17:43)
[2018-04-14] MEDS: WATER IV ×3 (13:18→17:43)
[2018-04-14 13:26] LABS: HEMOLYSIS < 15 (0-50); Iron 32 ug/dL (49-181)
[2018-04-14 13:35] LABS: Ammonia (NH3) < 9.0 umol/L (9-30)
[2018-04-14 13:37] LABS: Percent Iron Saturation 7 % (20-50); Total Iron Binding Capacity 461 ug/dL (261-462); Transferrin 359 mg/dL (206-381)
[2018-04-14 13:58] LABS: TSH w/ Reflex to FT4 2.46 uIU/mL (0.47-4.68)
[2018-04-14] MEDS: PANTOPRAZOLE 40 MG VIAL IV (14:12)
[2018-04-14] MEDS: dilTIAZem CD 120 MG CAP PO ×2 (14:12→17:55)
[2018-04-14] MEDS: POTASSIUM CHLORIDE 20 MEQ TAB 40 MEQ PO (14:12)
--- NOTE | 2018-04-14 16:47 | PC.NURSE ---
Admission Note; Pt admitted from ER for SOB, pt arrives on 2 L NC with SPO2 100%. Titrated to 1 L NC 95%. Pt with wheezing in all robles, diminished especially in R base. Pt with wound in R LE, Dr. Chaudhari to bedside to evaluate. Wound culture sent. Pt in a-fib RVR, HR up to 130s at times. Given 120 mg PO diltiazem per MD order, HR remains in 120s. Pt denies CP/chest pressure. Pt endorses taking ~ 60523 mg PO tylenol yesterday, started on IV acetylcysteine per MD order. Pt otherwise with VSS, Dr. Vernon to bedside to evaluate. Will continue to monitor, notify MD with changes.
[2018-04-14] MEDS: POTASSIUM CHLORIDE 20 MEQ TAB PO (17:44)
--- NOTE | 2018-04-14 17:59 | PC.NURSE ---
Addendum entered by Kristan Purcell R.N. 04/14/18 22:26: Patient resting quietly, no c/o pain or discomfort. Breathing effort improved, SOB with activity only. HR 94, O2 sat 97% on 2L O2 via NC. Original Note: Addendum entered by Kristan Purcell R.N. 04/14/18 21:36: Patient continue on Afib RVR, with activity HR 140's. Dr. Vernon notified. New Rate control scheduled and PRNs meds orders obtained. Metoprolol 50 mg PO x 1 BP 111/78. Original Note: Addendum entered by Kristan Purcell R.N. 04/14/18 19:31: Dr. Vernon notified regarding sustained A fib with HR 150's, and O2 administration due to SOB and noted desats while sleeping. New order obtained to administer Lasix IV. RR 20-22 with SOB at rest noted, sitting up right 60 degrees for comfort. Post IV lasix. HR 117 BP 131/68. Diminished lung sound R >L, aware. Will continue to monitor rate, rhythm, and BP. Original Note: Addendum entered by Kristan Purcell R.N. 04/14/18 18:24: Sleeping between care, arouses easily. HR 110. BP 127/56. Remain on O2 at 2L while sleeping via NC. Continue on Acetylcysteine IV infusing as ordered. Original Note: Erika note: Patient awake and calm, Administered Cardizem PO x 1 for rate control. HR 128 bpm, Afib. BP 155/68. Dr. Vernon aware. Desaturation noted while sleeping (88-90), placed on O2 at 2L via NC. O2 sat 97%. Code status changed to DNR as per patient wish.
[2018-04-14] MEDS: FUROSEMIDE 40 MG/4 ML VIAL IV (19:15)
[2018-04-14] MEDS: METOPROLOL 50 MG TABLET PO (21:40)
[2018-04-15] VITALS (12 sets, daily range): BP systolic 90–101; BP diastolic 63–68; PULSE 84–107; RESP 16–18; TEMP 36.4–37.2; O2SAT 91–97
[2018-04-15 06:13] LABS: Add Manual Diff / Slide Review NO; Basophils Percent Auto 0.7 % (0-2); Eosinophils Percent Auto 0.9 % (2-4); Hematocrit 24.6 % (41-53); Hemoglobin 7.7 g/dL (13.5-17.5); INR 1.5 (0.9-1.3); Lymphocytes Percent Auto 11.3 % (25-40); Mean Corpuscular HGB Conc 31.3 % (30-36); Mean Corpuscular Hemoglobin 24.1 PG (26-34); Mean Corpuscular Volume 76.8 fL (80-100); Neutrophils Absolute Auto 5800 /uL (3000-5900); Neutrophils Percent Auto 69.1 % (50-75); Platelet Count 300 X10^3/uL (150-400); Prothrombin Time 16.5 SECONDS (10.1-12.7); White Blood Cell Count 8.3 X10^3/uL (4.5-11.0)
[2018-04-15 06:18] LABS: Alanine Aminotransferase 19 IU/L (21-72); Albumin 3.3 g/dL (3.5-5.0); Alkaline Phosphatase 106 U/L (38-126); Aspartate Aminotransferase 16 IU/L (17-59); BUN Creatinine Ratio 16.4 (6-22); Bilirubin Total 0.8 mg/dL (0.2-1.3); Blood Urea Nitrogen 18 mg/dL (9-20); Calcium 8.6 mg/dL (8.4-10.2); Carbon Dioxide 33 mmol/L (22-32); Chloride 96 mmol/L (98-107); Estimated Glomerular Filt Rate > 60.0 mL/min (>60); Globulin 3.3 g/dL (1.7-4.1); Glucose 98 mg/dL (80-110); HEMOLYSIS < 15 (0-50); Potassium 3.5 mmol/L (3.4-5.1); Sodium 139 mmol/L (137-145); Total Protein 6.6 g/dL (6.3-8.2)
[2018-04-15] MEDS: POTASSIUM CHLORIDE 20 MEQ TAB PO ×3 (08:56→17:16)
[2018-04-15] MEDS: METOPROLOL 50 MG TABLET PO ×2 (08:57→20:38)
[2018-04-15] MEDS: PANTOPRAZOLE 40 MG VIAL IV (08:57)
[2018-04-15] MEDS: TRAMADOL 50 MG TABLET PO ×2 (09:04→13:04)
[2018-04-15] MEDS: dilTIAZem CD 120 MG CAP 240 MG PO (09:05)
--- NOTE | 2018-04-15 10:14 | PM.PN.1 ---
Subjective Date Patient Seen: 04/15/18 Time Patient Seen: 10:14 Interval history: No new complaints Exam Vital Signs (past 8 hours): - 04/15/18 03:39 04/15/18 04:22 04/15/18 07:30 Temperature 98.9 F 98.1 F Pulse Rate 107 H 106 H Respiratory Rate 16 18 Blood Pressure 96/68 90/64 Pulse Oximetry 94 97 91 Fraction of Inspired Oxygen 28 Oxygen Delivery Method Nasal Cannula Oxygen Flow Rate 2 Narrative Exam Narrative: Resting comfortably no acute distress HEENT exam unremarkable Heart irregular Lungs clear Abdomen soft nontender Lower extremities 2+ edema bilateral lower extremities chronic venous stasis changes bilateral. Stage III ulcer on the left pratt Neuro exam unremarkable Skin warm and dry Objective Labs Result Diagrams: 04/15/18 05:38 04/15/18 05:38 Labs: Laboratory Results - last 24 hr 04/14/18 04/14/18 04/14/18 12:19 12:19 13:02 WBC RBC Hgb Hct MCV MCH MCHC RDW Plt Count Neut % (Auto) Lymph % (Auto) [place] % (Auto) Eos % (Auto) Baso % (Auto) Neut # (Auto) PT INR Sodium Potassium Chloride Carbon Dioxide BUN Creatinine Estimated GFR BUN/Creatinine Ratio Glucose Calcium Magnesium 2.0 Iron 32 L TIBC 461 % Saturation 7 L Transferrin 359 Ferritin 14.0 L Total Bilirubin AST ALT Alkaline Phosphatase Ammonia < 9.0 L Total Protein Albumin Globulin Albumin/Globulin Ratio TSH 2.46 Acetaminophen 04/14/18 04/15/18 04/15/18 Unknown 05:38 05:38 WBC 8.3 RBC 3.20 L Hgb 7.7 L Hct 24.6 L MCV 76.8 L MCH 24.1 L MCHC 31.3 RDW 23.0 H Plt Count 300 Neut % (Auto) 69.1 Lymph % (Auto) 11.3 L [place] % (Auto) 18.0 H Eos % (Auto) 0.9 L Baso % (Auto) 0.7 Neut # (Auto) 5800 PT 16.5 H INR 1.5 H Sodium Potassium Chloride Carbon Dioxide BUN Creatinine Estimated GFR BUN/Creatinine Ratio Glucose Calcium Magnesium Iron TIBC % Saturation Transferrin Ferritin Total Bilirubin AST ALT Alkaline Phosphatase Ammonia Total Protein Albumin Globulin Albumin/Globulin Ratio TSH Acetaminophen < 10 L 04/15/18 05:38 WBC RBC Hgb Hct MCV MCH MCHC RDW Plt Count Neut % (Auto) Lymph % (Auto) [place] % (Auto) Eos % (Auto) Baso % (Auto) Neut # (Auto) PT INR Sodium 139 Potassium 3.5 Chloride 96 L Carbon Dioxide 33 H BUN 18 Creatinine 1.10 Estimated GFR > 60.0 BUN/Creatinine Ratio 16.4 Glucose 98 Calcium 8.6 Magnesium Iron TIBC % Saturation Transferrin Ferritin Total Bilirubin 0.8 AST 16 L ALT 19 L Alkaline Phosphatase 106 Ammonia Total Protein 6.6 Albumin 3.3 L Globulin 3.3 Albumin/Globulin Ratio 1.0 TSH Acetaminophen Assessment & Plan Plan: Assessment/Plan Narrative: 1. Progressive edema and shortness of breath. Etiology unclear. His BNP is only a 125 arguing against congestive heart failure. His serum albumin is normal. He does have significant alcohol use history which may indicate decompensated cirrhosis although he has normal liver enzymes, bilirubin and alkaline phosphatase is only slightly above normal range. Plan: Diuresis with IV Lasix 40 mg twice daily with extra oral potassium. He has had a good diuresis over the last 24 hr Ultrasound of the liver unremarkable Obtain transthoracic echo. 2. Chronic atrial fibrillation with RVR. Patient has been off of his Cardizem for the past month likely explaining rapid rate. Plan: Restart Cardizem extended release 120 mg daily. Telemetry monitoring. Echo. Check TSH. Also add beta-gonzalo 3. Presumed acetaminophen acute toxicity. Patient with reported 84069 mg acetaminophen intake over a period of 24 hr. His last dose was approximately 11 hr prior to the ER and therefore his undetectable acetaminophen level would not be reliable. Plan: Started patient on acetylcysteine 20 hr IV infusion protocol on April 14. Liver enzymes remain normal 4. Acute aspirin overdose. Patient with ingestion of approximately 4000 mg of aspirin over previous 12 hr. He is not having gross melena or leni red blood. Plan: Started Protonix 40 mg IV daily for GI protection. 5. Microcytic anemia, presumed chronic. Iron is low. He this event early has been chronically a problem for him. Plan to give him a IV dose of iron today. He should have outpatient endoscopies upper and lower 6. Cigarette and alcohol dependence. Patient advised to stop drinking and smoking. Nicotine patch as needed. Monitor for alcohol withdrawal. 7. DVT prophylaxis. Lovenox contraindicated due to likely chronic bleed. 8. Hypokalemia. Improved with oral set replacement 9. Non pressure ulcer left lower extremity with localized super infection. Appreciate wound care consult by Dr. Chaudhari. G stain shows gram-positive organisms plan to start him on Keflex for now await final culture results arterial Doppler of the extremities showing probable peripheral arterial disease. Plan to further evaluate with an MRA
--- NOTE | 2018-04-15 11:07 | CM.IDA ---
DCP: Case received, EMR reviewed and met with patient. Introduced self and role. DCP template completed with info currently available. Pt is a 68 year old male who was admitted yesterday at approx 10:15 by ambulence to care of the hospitalist team. PCP: Dr. De Los Santos. Payer: confirmed: Medicare Pt carries diagnosis of shortness of breath, but upon admission, was noted to have a-fib, bilateral pleural effusions, as well as anemia. Patient also presented a non-pressure wound to his anterior left lower leg. Patient had also been taking over 4000 mg of Tylenol a day, and is a binge drinker on week-ends. P: BOARDMARKER consult, and will check in tomorrow with status of patient. When ready for discharge, will consult with hospitalist team and social to discuss further needs of patient in the home. tianna Ball, ROMINA/binder caser
[2018-04-15] MEDS: IRON SUCROSE 200 MG in SODIUM CHLORIDE 0.9% 100 ML 220 ML IV (13:02)
[2018-04-15] MEDS: FUROSEMIDE 40 MG/4 ML VIAL IV ×2 (13:03→20:38)
--- NOTE | 2018-04-15 14:56 | PC.NURSE ---
Pt denies need for nicotine patch but was advised that he can ask for one anytime. States he wants to use discipline. Not sure about his motivation to quit at this time. Dressing to left LE changed. Wound base is sloughy with cream colored drainage (small amt). Plan to start abx this evening. Pt cooperative with all cares and expressing appreciation. Refused MRI today I don't do MRIs - I feel too closed in MD aware of refusal. Echo completed however.
--- NOTE | 2018-04-15 15:52 | CM.DANOTE ---
Discharge Planning/Care Management Bench Shear Operator Consult Start: 04/15/18 15:47 Freq: Status: Active Protocol: Document 04/15/18 15:47 (Rec: 04/15/18 15:52 [id number]) Bench Shear Operator Consult GENERATION MANAGER Assessment Type Substance Abuse Other Reason for GENERATION MANAGER Referral Patient states to alleviate the pain from ulcer on his leg he took 4 tablets of extra- strength (4000 mg closed acetaminophen every 4 hr for the past 24 hr until about 9: 00 p.m. last night. He then switch to aspirin 325 mg taking 4 tablets every 4 hr until he came into ER this morning at about 8:00 a.m.. He also reports history of significant alcohol use 6 beers or more a day in the past but apparently in more recent years he binge drinks on the weekends (for example multiple whiskey shots). Referred by DCP/COMMUNITY OUTREACH DIRECTOR Presenting Problem Progressive dyspnea and swelling in his legs over the past month Mental health diagnosis Patient reports Agoraphobia. VOA/CMS check No Suicidal thoughts No Past Suicidal thoughts Yes: 18 years ago Current Suicidal thoughts No Prior Suicide attempts Yes: 18 years ago Number of suicide attempts 1 Current plan for self harm No Access to guns and weapons No Thoughts of harm to others No Past thoughts of harm to others No Current thoughts of harming others No Prior attempts to harm others No Current plan to harm others No Current Risk factors Substance abuse Financial difficulties Relevant Medical History Progressive edema and shortness of breath. Chronic atrial fibrillation with RVR Crisis Plan None needed Action taken Sent home: family/friends Met with patient and adult son/[place]: Patient requested son stay during assessment. Patient states he does drink alcohol but is not interested in any IP/OP resources. Patient states he understands he took too much medication but did not do it with intent to harm himself, but in an attempt to ease the pain. Patient reports a diagnosis of agoraphobia for the past 18 years. 18 years again patient attempted to kill himself through way of electricution, strangulation and medication. Patient stated he has not tried since. Patient denies any thoughts to harm himself or others but admits to having a positive outlook on . Patient is a without [facility] resources. After long discussion with patient it was decided [facility] will [facility]. Patient was on medicaid in the past but it was discontinued for noncompliance. Patients goals: Make appointment with [facility]. Follow up with [facility]. Attempt to establish a PCP. Patient agreeable to HH/RN and GENERATION MANAGER. Patient on limited income which limits his ability to fulfil prescriptions as needed. ALONZO/Dolly notified of patients preference for either [facility] or [facility]. Patient currently resides in [place] but may be moving his RV to [facility]. F2F will need to be obtain.
[2018-04-15] MEDS: CIPROFLOXACIN 500 MG TABLET PO (20:37)
[2018-04-16] VITALS (10 sets, daily range): BP systolic 91–105; BP diastolic 49–69; PULSE 88–97; RESP 14–18; TEMP 36.6–36.7; O2SAT 87–97
[2018-04-16 06:22] LABS: BUN Creatinine Ratio 18.6 (6-22); Blood Urea Nitrogen 26 mg/dL (9-20); Calcium 8.5 mg/dL (8.4-10.2); Carbon Dioxide 30 mmol/L (22-32); Chloride 92 mmol/L (98-107); Estimated Glomerular Filt Rate 50.4 mL/min (>60); Glucose 95 mg/dL (80-110); HEMOLYSIS < 15 (0-50); Magnesium 1.9 mg/dL (1.6-2.3); Potassium 3.6 mmol/L (3.4-5.1); Sodium 132 mmol/L (137-145)
[2018-04-16] MEDS: PANTOPRAZOLE 40 MG TABLET PO (06:25)
[2018-04-16] MEDS: dilTIAZem CD 120 MG CAP 240 MG PO (10:52)
[2018-04-16] MEDS: SODIUM CHLORIDE 0.9% FLUSH 10 ML IV ×2 (10:52→22:02)
[2018-04-16] MEDS: POTASSIUM CHLORIDE 20 MEQ TAB PO ×3 (10:52→17:15)
[2018-04-16] MEDS: FUROSEMIDE 40 MG/4 ML VIAL IV (10:52)
[2018-04-16] MEDS: CIPROFLOXACIN 500 MG TABLET PO ×2 (10:52→22:00)
--- NOTE | 2018-04-16 11:42 | P.PN_ITS ---
Subjective Date Patient Seen: 04/16/18 Time Patient Seen: 11:38 Interval history: He feels a little stronger he feels that the edema is improving Exam Vital Signs (past 8 hours): - 04/16/18 05:18 04/16/18 07:55 04/16/18 09:00 Temperature 97.9 F 97.9 F Pulse Rate 90 88 Respiratory Rate 16 16 Blood Pressure 91/49 L 105/69 Pulse Oximetry 94 95 94 04/16/18 10:50 Temperature Pulse Rate 88 Respiratory Rate Blood Pressure 95/64 Pulse Oximetry 94 Fraction of Inspired Oxygen 28 Oxygen Delivery Method Nasal Cannula Oxygen Flow Rate 1 Narrative Exam Narrative: He is resting comfortably Telemetry showing atrial flutter with a rate of about 80 Neck no JVD Lungs Clear to auscultation Heart irregular Abdomen soft nontender Lower extremities the ulceration covered growth from that is showing Enterobacter and Klebsiella he still does have 2+ edema lower extremities stasis dermatitis noted Neuro exam unremarkable Objective Labs Result Diagrams: 04/15/18 05:38 04/16/18 05:45 Labs: Laboratory Results - last 24 hr 04/16/18 05:45 Sodium 132 L Potassium 3.6 Chloride 92 L Carbon Dioxide 30 BUN 26 H Creatinine 1.40 H Estimated GFR 50.4 L BUN/Creatinine Ratio 18.6 Glucose 95 Calcium 8.5 Magnesium 1.9 Assessment & Plan Plan: Assessment/Plan Narrative: 1. Progressive edema and shortness of breath. Probably due to worsening aortic stenosis the echo showed normal LV function but had moderate aortic stenosis that seemed to be worse than previous also had more mild pulmonary hypertension and elevated right-sided pressures. His BNP is only a 125 arguing against left heart failure. His serum albumin is normal. He does have significant alcohol use history which may indicate decompensated cirrhosis although he has normal liver enzymes, bilirubin and alkaline phosphatase is only slightly above normal range. Plan: Continue with diuresis today increasing the Lasix up to 80 mg for 2 more doses and then stop 2. Chronic atrial fibrillation with RVR. Patient has been off of his Cardizem for the past month likely explaining rapid rate. Cardizem has been restarted is now on a beta-gonzalo blood pressure slightly low so we will cut the beta- gonzalo back a little bit. He does have iron deficiency anemia so were holding any anticoagulation for now 3. Presumed acetaminophen acute toxicity. Patient with reported 09098 mg acetaminophen intake over a period of 24 hr. His last dose was approximately 11 hr prior to the ER and therefore his undetectable acetaminophen level would not be reliable. He completed acetylcysteine IV therapy for this. 4. Acute aspirin overdose. Patient with ingestion of approximately 4000 mg of aspirin over previous 12 hr. He is not having gross melena or leni red blood. Plan: Started Protonix 40 mg IV daily for GI protection. 5. Microcytic anemia, presumed chronic. Iron is low. He this event early has been chronically a problem for him. Intravenous iron given on April 15 plan to repeat intravenous iron today x1. Because of the presumed GI blood loss we are not anticoagulated for his AFib. He should have outpatient endoscopies upper and lower 6. Cigarette and alcohol dependence. Patient advised to stop drinking and smoking. Nicotine patch as needed. Monitor for alcohol withdrawal. 7. DVT prophylaxis. Lovenox contraindicated due to likely chronic bleed. 8. Hypokalemia. Improved with oral set replacement 9. Non pressure ulcer left lower extremity with localized super infection. Appreciate wound care consult by Dr. Chaudhari. He is on Cipro for the 2 g negative organisms that are growing out that is sensitive to.
[2018-04-16] MEDS: IRON SUCROSE 200 MG in SODIUM CHLORIDE 0.9% 100 ML 220 ML IV (13:50)
[2018-04-16] MEDS: TRAMADOL 50 MG TABLET PO (13:50)
--- NOTE | 2018-04-16 14:25 | PC.NURSE ---
day shift pt did not c/o pain until end of shift then requested tramadol for the pain. awaiting reassessment. wound is dressed with foam dressing covered in kerlix. dressing is CDI. [address] via NC. BP this AM was low and spoke with . Metoprolol held and 40 mg lasix given and 240 mg diltiazem given to pt as well per MD verbal orders. pt urinating well after lasix admin. PIV occluded and leaking, removed and new PIV placed without issue. hourly rounding provided, call light within reach.
[2018-04-16] MEDS: FUROSEMIDE 100 MG/10 ML VIAL 80 MG IV ×2 (14:42→22:02)
--- NOTE | 2018-04-16 14:43 | CM.DPC ---
Reviewed chart. Requested that office admin Bhakti fax referral to 1. [facility] 2. [facility] if [facility] can not f/u w/in 48 hrs for wound care. Face sheet, H+P, wound care consult note, HH order, and SCIENCE WRITER note included. KRISTIN
--- NOTE | 2018-04-16 15:16 | PC.NURSE ---
Addendum entered by Franklyn Sprague R.N. 04/16/18 18:37: Drg. changed on left leg wound. Drg. had scant brown drainage present and a fowl odor was noted. It is unclear if odor was from wound or from patients feet as hygiene is poor. White slough noted on base of wound bed, was removed w/ wet gauze and dried. Clean drg. placed on open wound, patient tolerated drg. change well w/ no discomfort. Original Note: Patient is A&O x3, pleasant and cooperative w/ staff and is able to make needs known to staff when nec. Reports pain in BLE has improved and patient is aware that drg. to left leg is due to be changed this shimon. 3+pitting edema to BLE, skin appears to be wrinkling and dark in color (venous staining). On 1L NC and 96%. Chronic AFib, tele monitoring being done. Call light w/in reach, bed in low pos.
--- NOTE | 2018-04-16 17:19 | PT.IIE ---
Current Diagnoses Chronic venous hypertension (idiopathic) with inflammation of bilateral lower extremity (04/14/18) Local infection of the skin and subcutaneous tissue, unspecified (04/14/18) Non-pressure chronic ulcer of unspecified part of left lower leg with fat layer exposed (04/14/18) Medical History (Last Updated 04/14/18 @ 12:59 by Jackson Chaudhari MD) Non-pressure ulcer of left lower extremity with fat layer exposed (Acute) Chronic venous hypertension (idiopathic) with inflammation of bilateral lower extremity (Acute) Physical Therapy Inpatient Evaluation/Re-Eval M1 PT/OT-IP Prior Functional Status Start: 04/16/18 17:02 Freq: NEEDED Status: Active Protocol: Document 04/16/18 17:03 AB (Rec: 04/16/18 17:18 AB [id number]) Medical Review Prior Functional Status Medical History Reviewed Yes Mobility and Gait pt stated that he is independent with all mobilities and ambulation without AD Social History Household Members none Living Arrangements Mobile home Number of Floors (Floors) One Floor Number of Stairs To Enter/Railing? pt has 3 steps to enter with L rail ascending Home Equipment Shower Seat without Backrest Employment Status Retired Additional Social History Comment pt has a step in shower (~ 6-8 inch step) Has a low toilet without grab bars but has counter next to toilet M2 PT-IP Current Condition Start: 04/16/18 17:02 Freq: NEEDED Status: Active Protocol: Document 04/16/18 17:03 AB (Rec: 04/16/18 17:18 AB [id number]) Physical Therapy Current Condition Current Condition Evaluation Date 04/16/18 Treatment Diagnosis SOB; difficulty in walking Onset Date 04/14/18 M3 PT-IP Subjective Start: 04/16/18 17:02 Freq: NEEDED Status: Active Protocol: Document 04/16/18 17:03 AB (Rec: 04/16/18 17:18 AB [id number]) Subjective Physical Therapy Visit Type Type Initial Evaluation Visit Start Time 15:37 Visit Stop Time 16:07 Total Visit Minutes 30 Number of HAT CHECKER Visits 0 Physical Therapy Visit Comments Patient Comments pt agreeable to do therapy M4 PT-IP Mobility and Gait Start: 04/16/18 17:02 Freq: NEEDED Status: Active Protocol: Document 06/29/18 17:03 AB (Rec: 04/16/18 17:18 AB [id number]) PT-Bed Mobility Assessment Supine to Sit Supine to Sit Standby Assistance Scooting Scooting Up and Down in Bed Standby Assistance PT-Transfer Assessment Sit to and From Stand Sit to and from Stand Contact Guard Assistance Equipment Transfer Assistive Device Gait Belt Front Wheeled Walker Orthotic/Prosthetic Devices or Brace: No Transfers Transfer Destination Chair Transfer Technique Stand Step Pivot Transfer Ability Level of Assist Contact Guard Assistance Gait Assessment Gait Gait Assistance Required: Contact Guard Assist Distance (Feet) (feet) 20 Able to Maintain Weight Bearing Status Yes During Gait Assistive Devices Assistive Device Gait Belt Front Wheeled Walker Orthotic/Prosthetic Devices or Brace: No Gait Deviations General Gait Pattern Antalgic Decreased Stride Length Decreased Feet Clearance Factors Limiting Gait Function Factors Limiting Gait Function Decreased Activity Tolerance Decreased Strength Poor Balance Poor Safety Awareness Comments Gait Comments pt with unsteady gait. pt stated that he used a FWW before and does not want it but pt educated on safety and agreed to use FWW at this time PT-Balance Assessment Sitting Balance and Reactions Static Sitting Balance Ability Good Dynamic Sitting Balance Ability Good Standing Balance and Reactions Static Standing Balance Ability Fair Dynamic Standing Balance Ability Fair M5 PT-IP Objective Assessments Start: 04/16/18 17:02 Freq: NEEDED Status: Active Protocol: Document 04/16/18 17:03 AB (Rec: 04/16/18 17:18 AB [id number]) Orientation Orientation/Cognition Level of Alertness Alert Orientation Name Age Birthday Month Date Year Day of Week Place Situation Strength Lower Extremity Strength Assessment Bilaterally Impaired Hip 4-/5 Knee 4-/5 Ankle 4-/5 M6 PT-IP Treatment Start: 04/16/18 17:02 Freq: NEEDED Status: Active Protocol: Document 04/16/18 17:03 AB (Rec: 04/16/18 17:18 AB [id number]) Physical Therapy Treatment Education Education Provided Safety M7 PT-IP Assessment and Plan Start: 04/16/18 17:02 Freq: NEEDED Status: Active Protocol: Document 04/16/18 17:03 AB (Rec: 04/16/18 17:18 AB [id number]) PT Summary Assessment and Plan Potential Rehabilitation Potential Good Status of Condition at Evaluation Evolving Summary Impairments Pain ROM Strength Balance Coordination Sensation Cognition Bed Mobility Transfers Gait Activity Tolerance Assessment Summary pt requiring CGA with ambulation using FWW and presents with unsteady gait and decrease activity tolerance. pt will likely improve during hospital stay and may go home when medically stable. stair climbing will be completed prior to d/c. Goals Bed Mobility Goal Independent Transfer Goal Independent Gait Goal Independent Gait Distance 200 Other Goals up/down 3 steps with L rail ascending Days to Meet Goals 3 Frequency of Treatment Frequency Of Treatment Once a Day Treatment Plan Physical Therapy Treatment Plan Bed Mobility Training Transfer Training Gait Training Therapeutic Exercise Balance Retraining Post Op Education Discharge Planning Hot or Cold Pack Neuromuscular Re-ed Coordination Retraining Manual Therapy Other Recommendations and Next Treatment ambulation Focus Recommendations To Nursing Amount of Assist Needed 1 Person Assist Discharge Recommendations PT Discharge Recommendations Home
[2018-04-16] MEDS: METOPROLOL 50 MG TABLET 25 MG PO (22:01)
[2018-04-17] VITALS (7 sets, daily range): BP systolic 101–119; BP diastolic 59–64; PULSE 75–108; RESP 16–19; TEMP 36.4–36.5; O2SAT 92–97
[2018-04-17 05:46] LABS: Add Manual Diff / Slide Review NO; Hematocrit 24.8 % (41-53); Hemoglobin 7.9 g/dL (13.5-17.5); Lymphocytes Percent Auto 11.4 % (25-40); Mean Corpuscular HGB Conc 31.6 % (30-36); Mean Corpuscular Hemoglobin 24.1 PG (26-34); Mean Corpuscular Volume 76.3 fL (80-100); Neutrophils Absolute Auto 6000 /uL (3000-5900); Neutrophils Percent Auto 64.6 % (50-75); Platelet Count 348 X10^3/uL (150-400); Red Blood Cell Count 3.26 X10^6/uL (4.5-5.9); White Blood Cell Count 9.3 X10^3/uL (4.5-11.0)
[2018-04-17 06:14] LABS: Blood Urea Nitrogen 26 mg/dL (9-20); Calcium 8.5 mg/dL (8.4-10.2); Carbon Dioxide 29 mmol/L (22-32); Chloride 95 mmol/L (98-107); Estimated Glomerular Filt Rate 54.9 mL/min (>60); Glucose 107 mg/dL (80-110); HEMOLYSIS < 15 (0-50); Potassium 3.7 mmol/L (3.4-5.1); Sodium 133 mmol/L (137-145)
--- NOTE | 2018-04-17 06:20 | P.DS_ITS ---
History of Present Illness Chief complaint: SOB Discharge Providers Date of admission: 04/14/18 10:15 Primary care physician: Javier De Los Santos MD Consults: 04/14/18 12:20 Consult to Wound Care Routine Comment: left lower leg ulcer Consulting Provider: [facility] 04/14/18 13:18 Consult to Dietitian, Adult Routine Comment: Reason For Exam: decrease in intake d/t disease 04/16/18 11:43 Consult to Physical Therapy Evaluate & Treat Comment: weak Physician Instructions: Evaluate and Treat 04/16/18 14:37 Consult to Home Health Routine Comment: Reason For Exam: HH RN/BILINGUAL SPEECH LANGUAGE PATHOLOGIST Upon DC Discharge provider: Omar Caruso MD Summary Discharge Diagnosis: 1. Chronic atrial fibrillation with rapid ventricular response due to noncompliance 2. Acute diastolic congestive heart failure due to 1., possibly contributing moderate aortic stenosis 3. Acute aspirin overdose 4. Acute acetaminophen toxicity 5. Left lower extremity non pressure ulcer, likely due to stasis dermatitis and edema with skin breakdown, with localized infection and cellulitis due to Klebsiella and Enterobacter 6. Chronic lower extremity edema with stasis dermatitis 7. Chronic nicotine abuse 8. Chronic alcohol dependence 9. Hypokalemia 10. Chronic microcytic anemia, presumed due to chronic blood loss Hospital Course: 1. Progressive edema and shortness of breath. Probably due to worsening aortic stenosis the echo showed normal LV function but had moderate aortic stenosis that seemed to be worse than previous also had more mild pulmonary hypertension and elevated right-sided pressures. His BNP is only a 125 arguing against left heart failure. His serum albumin is normal. He does have significant alcohol use history which may indicate decompensated cirrhosis although he has normal liver enzymes, bilirubin and alkaline phosphatase is only slightly above normal range. Plan: Continue with diuresis today increasing the Lasix up to 80 mg for 2 more doses and then stop 2. Chronic atrial fibrillation with RVR. Patient has been off of his Cardizem for the past month likely explaining rapid rate. Cardizem has been restarted is now on a beta-gonzalo blood pressure slightly low so we will cut the beta- gonzalo back a little bit. He does have iron deficiency anemia so were holding any anticoagulation for now 3. Presumed acetaminophen acute toxicity. Patient with reported 40842 mg acetaminophen intake over a period of 24 hr. His last dose was approximately 11 hr prior to the ER and therefore his undetectable acetaminophen level would not be reliable. He completed acetylcysteine IV therapy for this. 4. Acute aspirin overdose. Patient with ingestion of approximately 4000 mg of aspirin over previous 12 hr. He is not having gross melena or leni red blood. Plan: Started Protonix 40 mg IV daily for GI protection. 5. Microcytic anemia, presumed chronic. Iron is low. He this event early has been chronically a problem for him. Intravenous iron given on April 15 plan to repeat intravenous iron today x1. Because of the presumed GI blood loss we are not anticoagulated for his AFib. He should have outpatient endoscopies upper and lower 6. Cigarette and alcohol dependence. Patient advised to stop drinking and smoking. Nicotine patch as needed. Monitor for alcohol withdrawal. 7. DVT prophylaxis. Lovenox contraindicated due to likely chronic bleed. 8. Hypokalemia. Improved with oral set replacement 9. Non pressure ulcer left lower extremity with localized super infection. Appreciate wound care consult by Dr. Chaudhari. He is on Cipro for the 2 g negative organisms that are growing out that is sensitive to. Status at Discharge Functional status at discharge: independent ambulation Overall status at discharge: patient is progressing back to baseline Time Spent with Patient Greater than 30 minutes Exam Vital Signs (past 8 hours): - 04/17/18 00:00 04/17/18 00:06 04/17/18 04:00 Temperature 97.6 F 97.7 F Pulse Rate 108 H 75 Respiratory Rate 19 17 Blood Pressure 101/64 101/59 L Pulse Oximetry 95 95 95 Fraction of Inspired Oxygen 28 Oxygen Delivery Method Nasal Cannula Oxygen Flow Rate 1 Narrative Exam Narrative: He is resting comfortably Telemetry showing atrial flutter with a rate of about 80 Neck no JVD Lungs Clear to auscultation Heart irregular Abdomen soft nontender Lower extremities the ulceration covered growth from that is showing Enterobacter and Klebsiella he still does have 1+ edema lower extremities stasis dermatitis noted Neuro exam unremarkable Objective Labs Result Diagrams: 04/17/18 05:28 04/16/18 05:45 Labs: Laboratory Results - last 24 hr 04/16/18 04/17/18 05:45 05:28 WBC 9.3 RBC 3.26 L Hgb 7.9 L Hct 24.8 L MCV 76.3 L MCH 24.1 L MCHC 31.6 RDW 22.0 H Plt Count 348 Neut % (Auto) 64.6 Lymph % (Auto) 11.[address] [place] % (Auto) 19.0 H Eos % (Auto) 4.0 Baso % (Auto) 1.0 Neut # (Auto) 6000 H Sodium 132 L Potassium 3.6 Chloride 92 L Carbon Dioxide 30 BUN 26 H Creatinine 1.40 H Estimated GFR 50.4 L BUN/Creatinine Ratio 18.6 Glucose 95 Calcium 8.5 Magnesium 1.9 Discharge Plan Discharge Plan Patient Disposition: Home, Self-Care Discharge comment: Elevate legs to decrease edema when not walking; walk 2-3 times daily Provider Discharge Instructions Diet: Low-sodium Wound Care Report to your healthcare provider any signs of infection, such as:: chills, fever, night sweats, increased pain and unusual drainage Dressing: Per wound care clinic directions Discharge Data Primary Care Provider: Javier De Los Santos Attending Provider: Rupert Vernon Admit Date/Time: 04/14/18 10:15
[2018-04-17 06:25] LABS: Anisocytosis 3+; Poikilocytosis 1+; Polychromasia 1+; Target Cells 2+
[2018-04-17 06:26] LABS: Hypochromasia 1+
[2018-04-17] MEDS: PANTOPRAZOLE 40 MG TABLET PO (06:48)
[2018-04-17] MEDS: CIPROFLOXACIN 500 MG TABLET PO (08:55)
[2018-04-17] MEDS: dilTIAZem CD 120 MG CAP 240 MG PO (08:55)
[2018-04-17] MEDS: POTASSIUM CHLORIDE 20 MEQ TAB PO (08:55)
[2018-04-17] MEDS: SODIUM CHLORIDE 0.9% FLUSH 10 ML IV (08:56)
[2018-04-17] MEDS: METOPROLOL 50 MG TABLET 25 MG PO (08:56)
--- NOTE | 2018-04-17 10:20 | PT.IPTN ---
Current Diagnoses Chronic venous hypertension (idiopathic) with inflammation of bilateral lower extremity (04/14/18) Local infection of the skin and subcutaneous tissue, unspecified (04/14/18) Non-pressure chronic ulcer of unspecified part of left lower leg with fat layer exposed (04/14/18) Physical Therapy Treatment Note M2 PT-IP Current Condition Start: 04/16/18 17:02 Freq: NEEDED Status: Active Protocol: Document 04/16/18 17:03 AB (Rec: 04/16/18 17:18 AB [id number]) Physical Therapy Current Condition Current Condition Evaluation Date 04/16/18 Treatment Diagnosis SOB; difficulty in walking Onset Date 04/14/18 M3 PT-IP Subjective Start: 04/16/18 17:02 Freq: NEEDED Status: Active Protocol: Document 04/17/18 10:20 AB (Rec: 04/17/18 10:20 AB [id number]) Subjective Physical Therapy Visit Type Type Patient Refusal Notes pt refused PT today and stated that he is going home and does not want to do therapy.
--- NOTE | 2018-04-17 10:34 | PC.NURSE ---
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 He has all personal belongings and peprwork signes as well as all questions answered. He has his scrips as well.
--- NOTE | 2018-04-17 10:41 | CM.DPNOTE ---
Medicare Message SW met bedside with pt and provided his Medicare Rights and pt agreeable with discharge home today and signed his Medicare Message. YANNI Mccarty
--- NOTE | 2018-04-17 10:41 | CM.DPC ---
DCP Discharge home with HH Per MD, pt is medically stable for discharge home today with HH RN/NIPPLE MACHINE OPERATOR and MD signed F2F. SW met bedside with pt and explained role and pt still agreeable for d/c home today via son POV and [facility] to open him to services. SW called [facility] to alert that pt has discharge orders and they requested the F2F, MD orders, and d/c summary faxed and SW faxed for their review. Plan: Patient to d/c home this morning via son POV and [facility] to open the pt to services. YANNI Mccarty
== END 2018-04-17 10:36 | disposition home health service (06) | DRG 292 ==
LOC: ED 08:42 → AC 10:15
PROVIDERS: Internal Medicine; Admitting Provider Internal Medicine; Emergency Provider Emergency Medicine; Family Provider Internal Medicine Cardiovascular Disease; PCP Internal Medicine Cardiovascular Disease; Visit Provider Internal Medicine
DX: I50.31 Acute diastolic (congestive) heart failure (principal); I87.333 Chronic venous hypertension (idiopathic) with ulcer and inflammation of bilateral lower extremity; L97.822 Non-pressure chronic ulcer of other part of left lower leg with fat layer exposed; D50.0 Iron deficiency anemia secondary to blood loss (chronic); T39.1X1A Poisoning by 4-Aminophenol derivatives, accidental (unintentional), initial encounter; T39.011A Poisoning by aspirin, accidental (unintentional), initial encounter; F10.20 Alcohol dependence, uncomplicated; Z66 Do not resuscitate; F17.210 Nicotine dependence, cigarettes, uncomplicated; I48.2 Chronic atrial fibrillation; E87.6 Hypokalemia; B96.1 Klebsiella pneumoniae [K. pneumoniae] as the cause of diseases classified elsewhere; B96.89 Other specified bacterial agents as the cause of diseases classified elsewhere
CPT/HCPCS: 36415; 36592; 71045; 76700; 80048; 80053; 80329; 81003; 82140; 82728; 83540; 83550; 83605; 83690; 83735; 83880; 84443; 84484; 85025; 85610; 85730; 87040; 87070; 87077; 87186; 87205; 93005; 93041; 93306; 93926; 94760; 96374; 96375; 96376; 97162; 99285; 99406; C9113; G0480; J0132; J1756; J1940; J2270

== ENCOUNTER 2018-04-23 17:25 | Emergency (ER) | payer MEDICARE, SELFPAY ==
[2018-04-14 11:32] VITALS: BMI 30.7
[2018-04-23 17:35] VITALS: BP 116/79; PULSE 87; RESP 18; O2SAT 99
--- NOTE | 2018-04-23 18:07 | ED_ITS ---
HPI - SOB/Dyspnea General Chief Complaint: Shortness of Breath/Dyspnea Stated Complaint: CANT BREATH Time Seen by Provider: 04/23/18 18:06 Source: patient Mode of arrival: ambulatory Limitations: no limitations History of Present Illness The patient has a history of AFib and CHF. He has significant lower extremity edema, he says this is been going on since January 2018. She has had orthopnea over the last couple nights. He denies associated chest pain. He has no fever, chills or cough. He is asymptomatic while sitting recumbent on the gurney at this time. He has open, weeping wounds in the left leg due to the edema. He had a prior lesion on the right leg that is healed. There is no erythema at the sites. 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 He was admitted here about 1-1/2 weeks ago with CHF exacerbation. He has a history of AFib with RVR. Echocardiogram showed mild to moderate aortic stenosis. Related Data Home Medications Medication Instructions Recorded Confirmed furosemide 80 mg PO BID 04/14/18 04/23/18 potassium chloride 10 meq PO BID 04/14/18 04/23/18 Previous Rx's Medication Instructions Recorded ciprofloxacin HCl [Cipro] 500 mg PO BID #8 tab 04/17/18 metoprolol tartrate 25 mg PO BID #60 tab 04/17/18 pantoprazole 40 mg PO 0700 #30 tab 04/17/18 tramadol 50 mg PO QID PRN #10 tab 04/17/18 metoprolol tartrate 50 mg PO BID #60 tab 04/23/18 Allergies Allergy/AdvReac Type Severity Reaction Status Date / Time NOVACAINE Allergy Intermediate Uncoded 04/14/18 08:19 Review of Systems Review of Systems All systems reviewed & are unremarkable except as noted in HPI and below Constitutional Denies body ache(s), Denies chills, Denies fever(s), Denies headache(s), Denies lethargy and Denies weakness ENT Ears, Nose, Mouth, and Throat: Denies dysphagia, Denies headache(s) and Denies sore throat Cardiovascular Denies chest pain, Reports rapid heart rate, Reports pedal edema, Reports leg edema and Reports dyspnea on exertion Respiratory Reports dyspnea on exertion and Reports other Gastrointestinal Gastrointestinal: Denies dysphagia Musculoskeletal Reports as per HPI, Denies back pain, Denies muscle weakness, Denies numbness and Denies tingling Integumentary/Breasts Comments: Left leg ulcer. See HPI. Neurologic Denies headache(s), Denies focal weakness, Denies numbness, Denies tingling and Denies weakness PFSH Medical History Non-pressure ulcer of left lower extremity with fat layer exposed (Acute) Chronic venous hypertension (idiopathic) with inflammation of bilateral lower extremity (Acute) Atrial fibrillation (Acute) Barretts esophagus (Acute) Chronic venous stasis (Acute) History of alcohol abuse (Acute) Social History household members: none other: lives in [place], his son is present today Exam Initial Vital Signs Initial Vital Signs: Vital Signs Pulse Rate 87 04/23/18 17:35 Respiratory Rate 18 04/23/18 17:35 Blood Pressure 116/79 04/23/18 17:35 Pulse Oximetry 99 04/23/18 17:35 Const General: cooperative and frail appearing Nutritional Appearance: well nourished Orientation: alert, awake, oriented x3 and not confused HENIN Head: normocephalic and atraumatic Mouth: oral mucosae normal and moist mucous membranes Teeth and gingiva: dentition normal Throat: posterior oropharynx abnormal Eyes Conjunctivae: conjunctivae normal Pupils: PERRL EOM: EOM intact bilaterally Neck Neck: No JVD Chest Chest: normal inspection of the chest Resp Effort & Inspection: normal respiratory effort and able to speak in complete sentences Auscultation: clear to auscultation bilaterally, no rales, no rhonchi and no wheezes Cardio Rate: tachycardic Rhythm: abnormal rhythm irregularly irregular Heart Sounds: S1 normal, S2 normal and no murmurs GI Inspection: non-distended Palpation: soft, no hepatosplenomegaly, No guarding, No pulsatile mass and No tender Auscultation: normal bowel sounds Back/Spine/Pelvis Back: normal to inspection and No CVA tenderness Skin Other: Bilateral stasis dermatitis in the lower extremities. Superficial ulcer in the left distal tibia. Neuro General: alert, oriented x3, gait normal and no focal motor deficits Speech: speech normal Extrem General: full ROM, no calf tenderness and pedal edema (4+ bilaterally.) Course Orders Ordered: ED Orders 07/06/18 18:12 B Type Natriuretic Peptide Stat Complete Blood Count AUTO DIFF Stat Comprehensive Metabolic Panel Stat Lipase Stat Partial Thromboplastin Time Stat Prothrombin Time INR Stat Troponin & CK Cardiac Panel Stat 04/23/18 18:26 XR chest 1V Stat EKG-12 Lead Stat Discontinued Medications Aspirin (Aspirin Chew) 324 mg PO NOW ONE Stop: 04/23/18 18:27 Last Admin: 04/23/18 18:50 Dose: 324 mg Furosemide (Lasix) 40 mg IV NOW ONE Stop: 04/23/18 18:29 Last Admin: 04/23/18 18:49 Dose: 40 mg Sodium Chloride (Normal Saline 0.9%) 1,000 mls @ 150 mls/hr IV CONT YEN Metoprolol Tartrate (Lopressor) 50 mg PO NOW ONE Stop: 04/23/18 19:59 Last Admin: 04/23/18 20:15 Dose: 50 mg Vital Signs - 8 hr 04/23/18 17:35 04/23/18 21:17 Pulse Rate 87 96 H Respiratory Rate 18 26 H Blood Pressure 116/79 Blood Pressure [Left Arm] 94/73 Pulse Oximetry 99 98 MDM - SOB/Dyspnea Medical Records Attestation: I reviewed the patient's medical records. Lab Data Attestation: I reviewed the patient's lab results. Result diagrams: 04/23/18 18:12 04/23/18 18:12 Lab Results 04/23/18 04/23/18 04/23/18 Range/Units 18:12 18:12 18:12 WBC 8.1 (4.5-11.0) X10^3/uL RBC 3.75 L (4.5-5.9) X10^6/uL Hgb 9.3 L (13.5-17.5) g/dL Hct 30.3 L (41-53) % MCV 80.8 D (80-100) fL MCH 24.7 L (26-34) PG MCHC 30.6 (30-36) % RDW 24.8 H (11.6-14.8) % Plt Count 326 (150-400) X10^3/uL Neut % (Auto) 63.1 (50-75) % Lymph % (Auto) 11.9 L (25-40) % [place] % (Auto) 14.2 H (3-14) % Eos % (Auto) 9.3 H (2-4) % Baso % (Auto) 1.5 (0-2) % Neut # (Auto) 5100 (8825-0978) /uL RBC Morphology Not Reportable Anisocytosis 2+ H Target Cells 1+ H PT 14.8 H (10.1-12.7) SECONDS INR 1.4 H (0.9-1.3) APTT 33 D (26.4-36.2) SECONDS Sodium 146 H D (137-145) mmol/L Potassium 3.5 (3.4-5.1) mmol/L Chloride 107 (98-107) mmol/L Carbon Dioxide 25 (22-32) mmol/L BUN 13 (9-20) mg/dL Creatinine 1.00 (0.66-1.25) mg/dL Estimated GFR > 60.0 (>60) mL/min BUN/Creatinine Ratio 13.0 (6-22) Glucose 111 H (80-110) mg/dL Calcium 9.0 (8.4-10.2) mg/dL Total Bilirubin 0.6 (0.2-1.3) mg/dL AST 38 (17-59) IU/L ALT 18 L (21-72) IU/L Alkaline Phosphatase 133 H (38-126) U/L Total Creatine Kinase 72 (55-170) U/L Troponin I < 0.012 (0.01-0.034) ng/mL B-Natriuretic Peptide (<100) Total Protein 7.8 (6.3-8.2) g/dL Albumin 3.9 (3.5-5.0) g/dL Globulin 3.9 (1.7-4.1) g/dL Albumin/Globulin Ratio 1.0 (1.0-2.8) Lipase 304 H D (23-300) U/L /04/05 Range/Units 18:12 WBC (4.5-11.0) X10^3/uL RBC (4.5-5.9) X10^6/uL Hgb (13.5-17.5) g/dL Hct (41-53) % MCV (80-100) fL MCH (26-34) PG MCHC (30-36) % RDW (11.6-14.8) % Plt Count (150-400) X10^3/uL Neut % (Auto) (50-75) % Lymph % (Auto) (25-40) % [place] % (Auto) (3-14) % Eos % (Auto) (2-4) % Baso % (Auto) (0-2) % Neut # (Auto) (6557-5183) /uL RBC Morphology Anisocytosis Target Cells PT (10.1-12.7) SECONDS INR (0.9-1.3) APTT (26.4-36.2) SECONDS Sodium (137-145) mmol/L Potassium (3.4-5.1) mmol/L Chloride (98-107) mmol/L Carbon Dioxide (22-32) mmol/L BUN (9-20) mg/dL Creatinine (0.66-1.25) mg/dL Estimated GFR (>60) mL/min BUN/Creatinine Ratio (6-22) Glucose (80-110) mg/dL Calcium (8.4-10.2) mg/dL Total Bilirubin (0.2-1.3) mg/dL AST (17-59) IU/L ALT (21-72) IU/L Alkaline Phosphatase (38-126) U/L Total Creatine Kinase (55-170) U/L Troponin I (0.01-0.034) ng/mL B-Natriuretic Peptide 141.0 H (<100) Total Protein (6.3-8.2) g/dL Albumin (3.5-5.0) g/dL Globulin (1.7-4.1) g/dL Albumin/Globulin Ratio (1.0-2.8) Lipase (23-300) U/L Imaging Data Chest x-ray: Radiologist's impression: Grossly unchanged examination since 04/14/18. Pulmonary edema as before. No new consolidation. Small bilateral pleural effusions, grossly unchanged. ECG Data Attestation: I personally reviewed and interpreted this ECG as follows: (AFib with RVR rate 127. LAFB. No acute ST elevation. Normal intervals otherwise noted.) Prior ECG tracings: available for review (No significant changes.) [facility] Narrative Medical decision making narrative: The patient has diuresed with the Lasix. He is on metoprolol 25 mg b.i.d.. With an additional dose of 50 mg p.o. his heart rate has lowered to the 80s/90s. He remains in AFib. He is ambulatory without discomfort. He feels improved. He will be discharged with the increased dose of Lopressor. Discharge Plan Departure Patient Disposition: Home, Self-Care Clinical Impression: A-fib Instructions: Atrial Fibrillation Activity Restrictions/Additional Instructions: I am going to increase her dose of metoprolol to 50 mg 2 times daily. Your currently on 25mg 2 times daily. Urate is much better controlled with the higher dose, it seems to be working well for you. You should arrange follow-up with her typewriters functional tester next week. Prescriptions: New metoprolol tartrate 50 mg tablet 50 mg PO BID Qty: 60 RF: 0 No Action potassium chloride 10 mEq Capsule, Extended Release 10 meq PO BID RF: 0 furosemide 80 mg Tablet 80 mg PO BID RF: 0 tramadol 50 mg Tablet 50 mg PO QID PRN (Reason: Pain, Moderate (4-6)) Qty: 10 RF: 0 ciprofloxacin HCl [Cipro] 500 mg Tablet 500 mg PO BID Qty: 8 RF: 0 metoprolol tartrate 50 mg Tablet 25 mg PO BID Qty: 60 RF: 0 pantoprazole 40 mg Tablet,Delayed Release (Dr/Ec) 40 mg PO 0700 Qty: 30 RF: 0
--- NOTE | 2018-04-23 18:26 | DI.RAD.S_ITS ---
PROCEDURE: XR CHEST 1V INDICATIONS: CONGESTIVE HEART FAILURE TECHNIQUE: One view of the chest was acquired. COMPARISON: [facility], CR, XR CHEST 1V, 04/14/2018, 7:45. FINDINGS: Surgical changes and devices: None. Lungs and pleura: No pneumothorax. Right apical capping is redemonstrated. Small bilateral pleural effusions with adjacent atelectasis. No new focal consolidation. Scattered upper and lower lobe bilateral groundglass opacities Mediastinum: Mediastinal contours appear normal. Heart size is normal. Bones and chest wall: No suspicious bony lesions. Overlying soft tissues appear unremarkable. IMPRESSION: Grossly unchanged examination since 04/14/18. Pulmonary edema as before. No new consolidation. Small bilateral pleural effusions, grossly unchanged. Dictated by: Theron Jack M.D. on 04/23/2018 at 19:32 Approved by: Theron Jack M.D. on 04/23/2018 at 19:33
[2018-04-23 18:41] LABS: INR 1.4 (0.9-1.3); Prothrombin Time 14.8 SECONDS (10.1-12.7)
[2018-04-23 18:44] LABS: PTT Partial Thromboplastin Tim 33 SECONDS (26.4-36.2)
[2018-04-23 18:46] LABS: Basophils Percent Auto 1.5 % (0-2); Eosinophils Percent Auto 9.3 % (2-4); Hematocrit 30.3 % (41-53); Hemoglobin 9.3 g/dL (13.5-17.5); Lymphocytes Percent Auto 11.9 % (25-40); Mean Corpuscular HGB Conc 30.6 % (30-36); Mean Corpuscular Hemoglobin 24.7 PG (26-34); Mean Corpuscular Volume 80.8 fL (80-100); Monocytes Percent Auto 14.2 % (3-14); Neutrophils Absolute Auto 5100 /uL (3000-5900); Neutrophils Percent Auto 63.1 % (50-75); Platelet Count 326 X10^3/uL (150-400); Red Blood Cell Count 3.75 X10^6/uL (4.5-5.9); Red Cell Distribution Width 24.8 % (11.6-14.8); White Blood Cell Count 8.1 X10^3/uL (4.5-11.0)
[2018-04-23] MEDS: FUROSEMIDE 40 MG/4 ML VIAL IV (18:49)
[2018-04-23] MEDS: ASPIRIN 81 MG TAB 324 MG PO (18:50)
[2018-04-23 18:52] LABS: Add Manual Diff / Slide Review SLIDE REVIEW
[2018-04-23 19:23] LABS: Anisocytosis 2+; Target Cells 1+
[2018-04-23 19:43] LABS: Alanine Aminotransferase 18 IU/L (21-72); Albumin 3.9 g/dL (3.5-5.0); Alkaline Phosphatase 133 U/L (38-126); Aspartate Aminotransferase 38 IU/L (17-59); Bilirubin Total 0.6 mg/dL (0.2-1.3); Blood Urea Nitrogen 13 mg/dL (9-20); Carbon Dioxide 25 mmol/L (22-32); Chloride 107 mmol/L (98-107); Creatine Kinase 72 U/L (55-170); Estimated Glomerular Filt Rate > 60.0 mL/min (>60); Globulin 3.9 g/dL (1.7-4.1); Glucose 111 mg/dL (80-110); HEMOLYSIS < 15 (0-50); Lipase 304 U/L (23-300); Potassium 3.5 mmol/L (3.4-5.1); Sodium 146 mmol/L (137-145); Total Protein 7.8 g/dL (6.3-8.2)
[2018-04-23 19:58] LABS: Troponin I < 0.012 ng/mL (0.01-0.034)
[2018-04-23] MEDS: METOPROLOL 50 MG TABLET PO (20:15)
[2018-04-23 21:17] VITALS: BP 94/73; PULSE 84; PULSE 96; RESP 20; RESP 26; O2SAT 100; O2SAT 98
== END 2018-04-23 22:10 | disposition home or self-care (01) ==
PROVIDERS: Emergency Provider Emergency Medicine; Family Provider Internal Medicine Cardiovascular Disease; PCP Internal Medicine Cardiovascular Disease
DX: I48.91 Unspecified atrial fibrillation (principal)
CPT/HCPCS: 36591; 71045; 80053; 82550; 82553; 83690; 83880; 84484; 85025; 85610; 85730; 93005; 96374; 99283; 99285; J1940